=== PATIENT | male | born 1975 | race Caucasian/White ===

== ENCOUNTER 2021-06-17 10:51 | Emergency (ER) | payer OTHER, SELFPAY ==
--- NOTE | 2021-06-17 10:56 | ED.NAVMDI ---
HPI - Nausea/Vomiting/Diarrhea General Chief complaint: Nausea/Vomiting/Diarrhea Stated complaint: diahhrea nausea chills Time Seen by Provider: 06/17/21 10:56 Source: patient and RN notes reviewed History of Present Illness HPI Narrative: Patient is a 46-year-old male who presents the urgent care with requesting a work note. Patient states that on Thursday he ate [employer] around 2 PM and developed some nausea, diarrhea, chills and abdominal cramps. Patient states that symptoms have completely resolved however he needs a return to work note. Patient states that he is diabetic and hypertensive and stopped his medications sometime ago. Patient is currently denying of any chest pain or headache. No other acute complaints. No acute distress noted. Patient aware of the plan of care. Some parts of this dictation were generated by voice recognition software and may contain typographical and/or grammatical inaccuracies. Related Data Home Medications Medication Instructions Recorded Confirmed No Home Medications 06/17/21 06/17/21 Allergies Allergy/AdvReac Type Severity Reaction Status Date / Time No Known Allergies Allergy Verified 06/17/21 11:04 Review of Systems Review of Systems: CONSTITUTIONAL: Denies fever, chills, or sweats. EYES: Denies visual changes, redness, or discharge. ENT: Denies rhinorrhea, congestion, sore throat, or otalgia. CARDIOVASCULAR: Denies chest pain, palpitations, or edema. RESPIRATORY: Denies cough or dyspnea. GASTROINTESTINAL: Denies abdominal pain, nausea, vomiting, or diarrhea. GENITOURINARY: Denies dysuria or hematuria. SKIN: Denies rash or itching. MUSCULOSKELETAL: Denies back pain, joint pain, or myalgia. NEUROLOGIC: Denies headache, numbness, or weakness. All other systems reviewed are negative, except as documented in HPI. PMFSH Comments At the time of my signature, I reviewed and agree with the nursing past medical, surgical, social, and family history. There is no relevant family history pertinent to the patient complaint. Exam Narrative: GENERAL: This is a well-nourished, well-developed patient, in no apparent distress. HEAD: normocephalic, atraumatic. EYES: PERRL. Sclera clear/white. Vision is grossly intact. EARS: External ears normal NOSE: External nose normal with no obvious nasal discharge, nares without redness, no rhinorrhea. THROAT: Mucous membranes moist NECK: Neck supple CARDIOVASCULAR: Regular rate and rhythm without murmurs, gallops, or rubs. RESPIRATORY: Clear to auscultation. Breath sounds equal bilaterally. No wheezes, rales, or rhonchi. GASTROINTESTINAL: Abdomen soft, non-tender, nondistended. Bowel sounds are active. No hepato-splenomegaly, or palpable masses. No guarding. SKIN: warm, intact with no suspicious lesions or rash, good texture and turgor. NEURO: awake, alert, and oriented to person, place and time. There were no obvious focal neurologic abnormalities. EXTREMITIES: No clubbing, cyanosis, or edema. Course Course Level of Care: Express Care Visit Vital Signs Vital signs: Vital Signs Temperature 98.5 F 06/17/21 10:58 Pulse Rate 95 06/17/21 10:58 Respiratory Rate 16 06/17/21 10:58 Blood Pressure 165/121 H 06/17/21 10:58 Pulse Oximetry 98 06/17/21 10:58 Temperature 98.5 F 06/17/21 10:58 Pulse Rate 95 06/17/21 10:58 Respiratory Rate 16 06/17/21 10:58 Blood Pressure 165/121 H 06/17/21 10:58 Pulse Oximetry 98 06/17/21 10:58 Reviewed-patient is informed that they may have pre-hypertension or hypertension based on a blood pressure reading in the department. I recommend the patient call the primary care provider listed on their discharge instructions or a physician of their choice this week to arrange follow-up for further evaluation of possible pre-hypertension or hypertension. MDM - Nausea/Vomiting/Diarrhea MDM Narrative Medical decision making narrative: Advised the patient to follow-up with a primary care doctor f
[2021-06-17 10:58] VITALS: BP 165/121; PULSE 95; RESP 16; TEMP 36.9; O2SAT 98
== END 2021-06-17 11:20 | disposition home or self-care (01) ==
PROVIDERS: Emergency Provider Nurse Practitioner Family
DX: Z71.1 Person with feared health complaint in whom no diagnosis is made (principal); I10 Essential (primary) hypertension; E11.9 Type 2 diabetes mellitus without complications; Z91.14 Patient's other noncompliance with medication regimen
CPT/HCPCS: 99202; G0463

== ENCOUNTER 2022-09-08 12:20 | Emergency (ER) | payer BC, SELFPAY ==
[2022-09-08 12:36] VITALS: BP 159/89; PULSE 84; RESP 16; TEMP 36.8; O2SAT 96
--- NOTE | 2022-09-08 12:37 | ED.URI ---
HPI - URI/Sore Throat General Chief Complaint: Upper Respiratory Infection Stated Complaint: cough causing sob History of Present Illness HPI Narrative: patient here requesting work note missed work due to nasal congestion no cough no fever no shortness of breath and no chest pain Related Data Home Medications Medication Instructions Recorded Confirmed atorvastatin 80 mg tablet mg 09/08/22 empagliflozin 10 mg tablet mg 09/08/22 (Jardiance) furosemide 40 mg tablet mg 09/08/22 glimepiride 2 mg tablet mg 09/08/22 lisinopril 10 mg tablet mg 09/08/22 metformin 500 mg tablet,extended mg PO 09/08/22 release 24 hr metoprolol tartrate 25 mg tablet mg 09/08/22 nitroglycerin 0.4 mg sublingual mg 09/08/22 tablet pantoprazole 40 mg tablet,delayed mg PO 09/08/22 release ticagrelor 90 mg tablet (Brilinta) mg 09/08/22 Allergies Allergy/AdvReac Type Severity Reaction Status Date / Time No Known Allergies Allergy Verified 06/17/21 11:04 Review of Systems Review of Systems: CONSTITUTIONAL: Denies chills, or sweats. Reports fever and generalized body aches EYES: Denies visual changes, redness, or discharge. ENT: Denies otalgia. Reports nasal congestion runny nose and sore throat CARDIOVASCULAR: Denies chest pain, palpitations, or edema. RESPIRATORY: Denies dyspnea. Reports occasional cough GASTROINTESTINAL: Denies abdominal pain, nausea, vomiting, or diarrhea. GENITOURINARY: Denies dysuria or hematuria. SKIN: Denies rash or itching. MUSCULOSKELETAL: Denies back pain, joint pain, or myalgia. Reports generalized body aches NEUROLOGIC: Denies headache, numbness, or weakness. PSYCHIATRIC: Denies anxiety or depression. PMFSH Comments At time of signature, agree with nursing past medical, surgical, social and family history. There is no relevant family history pertinent to the presenting complaint Exam Narrative: The patient is a well-developed, well-nourished in no acute distress. SKIN: Skin is warm and dry without erythema, swelling or exudate. There is good turgor. No tenting. HEAD: Atraumatic. Normocephalic. No temporal or scalp tenderness. EYES: Moist and bright. Sclera and conjunctivae normal. No discharge. PERRLA. Extraocular motions intact. Gross visual acuity intact. EARS: Pinna is normal shape and contour. Clear external auditory canals. TM pearly linares with good cone of light, no erythema or suppuration. Bilateral cerumen noted no gross hearing deficit. NOSE: pink, moist mucosa with good air movement. Clear rhinorrhea without nasal flaring. Septum midline. Mouth: moist mucous membranes. THROAT; mild erythema noted to posterior oropharynx with moderate postnasal drainage. Without exudate or ulceration.. Uvula midline. Normal movement of soft palate. NECK: Supple and nontender with full range of motion without discomfort. No meningeal signs. LUNGS: Equal and bilateral breath sounds without wheezes, rales or rhonchi. CHEST: The chest wall is without retractions or use of accessory muscles. HEART: Has a regular rate and rhythm without murmur, gallops, click or rub. ABDOMEN: Soft, nontender with positive active bowel sounds. No rebound tenderness. EXTREMITIES: Without cyanosis, clubbing or edema. Equal 2+ distal pulses and 2 second capillary refill noted. NEUROLOGIC: alert, active, . The patient moves all extremities with normal muscle strength. Normal muscle tone is noted. Normal coordination is noted. NO focal neurological findings noted. Course Course Level of Care: Express Care Visit Discharge Plan Discharge Clinical Impression: Upper respiratory infection Patient Disposition: Home, Self-Care Condition: Stable Instructions: Upper Respiratory Infection (DC) Additional Instructions: congestion - flonase am and pm for chronic sinus congestion or prolonged symptoms of sinusitis (takes several days to work). one to three times a day of irrigation of sinus with saline spray, oc
== END 2022-09-08 12:43 | disposition home or self-care (01) ==
PROVIDERS: Emergency Provider Nurse Practitioner Family; PCP Internal Medicine
DX: J06.9 Acute upper respiratory infection, unspecified (principal); E78.00 Pure hypercholesterolemia, unspecified; I10 Essential (primary) hypertension; E11.9 Type 2 diabetes mellitus without complications; I25.2 Old myocardial infarction
CPT/HCPCS: 99211; G0463

== ENCOUNTER 2023-03-11 13:56 | Emergency (ER) | payer SELFPAY ==
[2023-03-11 14:07] VITALS: BP 160/94; PULSE 89; RESP 18; TEMP 37; O2SAT 97
--- NOTE | 2023-03-11 14:20 | ED.URI ---
HPI - URI/Sore Throat General Chief Complaint: Nausea/Vomiting/Diarrhea Stated Complaint: nausea/diarrhea Time Seen by Provider: 03/11/23 14:20 Source: patient and RN notes reviewed Mode of arrival: ambulatory Limitations: no limitations History of Present Illness HPI Narrative: 47 y/o male with hx HTN, DM, CAD presented for c/o nausea and vomiting yesterday, started with diarrhea today. Last emesis was yesterday morning. Denies abdominal pain, hematochezia, melena, or hematemesis. Declines testing today just wants work note because he missed today. No pcp, new job just starting with new insurance and has not been taking prescribed meds as directed in order to stretch them to last until he can afford refills. Related Data Home Medications Medication Instructions Recorded Confirmed atorvastatin 80 mg tablet 80 mg PO DAILY 09/08/22 03/11/23 empagliflozin 10 mg tablet 10 mg PO DAILY 09/08/22 03/11/23 (Jardiance) furosemide 40 mg tablet 40 mg PO DAILY 09/08/22 03/11/23 glimepiride 2 mg tablet 2 mg PO DAILY 09/08/22 03/11/23 lisinopril 10 mg tablet 10 mg PO DAILY 09/08/22 03/11/23 metformin 500 mg tablet,extended 500 mg PO DAILY 09/08/22 03/11/23 release 24 hr metoprolol tartrate 25 mg tablet 25 mg PO BID 09/08/22 03/11/23 nitroglycerin 0.4 mg sublingual See Rx Instructions .Route .COMPLEX 09/08/22 03/11/23 tablet pantoprazole 40 mg tablet,delayed 40 mg PO DAILY 09/08/22 03/11/23 release ticagrelor 90 mg tablet (Brilinta) 90 mg PO BID 09/08/22 03/11/23 Allergies Allergy/AdvReac Type Severity Reaction Status Date / Time No Known Allergies Allergy Verified 03/11/23 14:09 Review of Systems Review of Systems: CONSTITUTIONAL: Denies body aches, fever, chills ENT: Denies rhinorrhea, congestion CARDIOVASCULAR: Denies chest pain, palpitations, or edema. RESPIRATORY: Denies cough or dyspnea. GASTROINTESTINAL: Endorses abdominal pain, nausea, vomiting, diarrhea. Denies hematochezia, melena, hematemesis GENITOURINARY: Denies dysuria, hematuria, or CVA tenderness. SKIN: Denies rash, itching, or wounds. MUSCULOSKELETAL: Denies back pain, joint pain, or myalgia. NEUROLOGIC: Denies headache, numbness, tingling, or weakness. All systems reviewed & are unremarkable except as noted in HPI and below PMFSH Past Medical History Medical History (Updated 03/11/23 @ 14:57 by Melissa Beard APRN) CAD (coronary artery disease) Diabetes Social History Social History (Updated 03/11/23 @ 14:57 by Melissa Beard APRN) Smoking packs per day: 1 Smoking cigarettes per day: 20.0 Smoking status: Current every day smoker Tobacco type: cigarettes Comments At time of signature, I have reviewed and agree with nursing past medical, surgical, social and family history unless otherwise noted. Please see nursing chart for further information. There is no relevant family history pertinent to the presenting complaint Exam Narrative: GENERAL: Well-appearing, and in no acute distress. EYES: EOMI. Conjunctivae normal. ENT: Mucous membranes pink and moist. CHEST: No respiratory distress. Clear to auscultation, faint exp wheeze to RUL. HEART: Regular rate and rhythm. No murmur appreciated. Normal peripheral pulses. ABDOMEN: abd soft, nondistended, normal active bowel sounds. nontender abdomen. No guarding, rebound tenderness, asymmetry EXTREMITIES: Normal range of motion. No edema. SKIN: Warm, dry, no rash. Capillary refill normal. Normal skin turgor. NEURO: No focal deficits. Alert and oriented x3. PSYCH: Normal affect. Course Course Emergency Course: Patient is aware of diagnosis, understands and agrees to treatment plan. Anticipatory guidance given. Patient agrees to follow-up as directed and is aware of reasons to seek care at the emergency department. Portions of this record may have been created with voice recognition software Level of Care: Express Care Visit Vital Signs Vital signs: Vital
== END 2023-03-11 14:55 | disposition home or self-care (01) ==
PROVIDERS: Emergency Provider Nurse Practitioner Family; PCP Internal Medicine
DX: R11.2 Nausea with vomiting, unspecified (principal); R19.7 Diarrhea, unspecified; I25.10 Atherosclerotic heart disease of native coronary artery without angina pectoris; Z79.84 Long term (current) use of oral hypoglycemic drugs; E11.9 Type 2 diabetes mellitus without complications; I10 Essential (primary) hypertension; F17.210 Nicotine dependence, cigarettes, uncomplicated
CPT/HCPCS: 99211; G0463

== ENCOUNTER 2023-06-08 08:52 | Emergency (ER) | payer OTHER, SELFPAY ==
--- NOTE | ~2023-06-08 | XR_ITS ---
XR forearm RT 2V 06/08/2023 09:45 INDICATION: Right forearm pain PROCEDURE: 2 views right forearm COMPARISON: No prior studies for comparison. FINDINGS: Fracture, dislocation or subluxation is not identified. Moderate dorsal soft tissue swellin g. No foreign bodies are identified. IMPRESSION: 1: NO ACUTE BONE OR JOINT ABNORMALITY IDENTIFIED. Reviewed, dictated and finalized at location A.
[2023-06-08 09:02] VITALS: BP 180/103; PULSE 79; RESP 20; TEMP 36.8; O2SAT 97
--- NOTE | 2023-06-08 09:41 | ED.UPPEXIN ---
HPI - Extremity Injury (Upper) General Chief Complaint: Extremity Injury, Upper Stated Complaint: Right forearm pain/tongue burn Time Seen by Provider: 06/08/23 09:33 Source: patient and RN notes reviewed Mode of arrival: ambulatory Limitations: no limitations History of Present Illness HPI narrative: Patient presents today with right forearm pain after a fall yesterday. States he did initially have pain, but is having significant pain today that he currently rates 3/10. Denies numbness or tingling in the arm or hand. Denies taking any [id number] medication for pain prior to arrival. He is also complaining of tongue pain after eating some biscuits and gravy at [facility] a few days ago. States it felt that he had a chemical burn, not a burn due to temperature. Related Data Home Medications Medication Instructions Recorded Confirmed atorvastatin 80 mg tablet 80 mg PO DAILY 09/08/22 03/11/23 empagliflozin 10 mg tablet 10 mg PO DAILY 09/08/22 03/11/23 (Jardiance) furosemide 40 mg tablet 40 mg PO DAILY 09/08/22 03/11/23 glimepiride 2 mg tablet 2 mg PO DAILY 09/08/22 03/11/23 lisinopril 10 mg tablet 10 mg PO DAILY 09/08/22 03/11/23 metformin 500 mg tablet,extended 500 mg PO DAILY 09/08/22 03/11/23 release 24 hr metoprolol tartrate 25 mg tablet 25 mg PO BID 09/08/22 03/11/23 nitroglycerin 0.4 mg sublingual See Rx Instructions .Route .COMPLEX 09/08/22 03/11/23 tablet pantoprazole 40 mg tablet,delayed 40 mg PO DAILY 09/08/22 03/11/23 release ticagrelor 90 mg tablet (Brilinta) 90 mg PO BID 09/08/22 03/11/23 Allergies Allergy/AdvReac Type Severity Reaction Status Date / Time No Known Allergies Allergy Verified 03/11/23 14:09 Review of Systems Review of Systems: CONSTITUTIONAL: Denies body aches, fever, chills, or sweats. EYES: Denies visual changes, redness, or discharge. ENT: Denies rhinorrhea, congestion, sore throat, or otalgia.+ tongue pain CARDIOVASCULAR: Denies chest pain, palpitations, or edema. RESPIRATORY: Denies cough or dyspnea. GASTROINTESTINAL: Denies abdominal pain, nausea, vomiting, or diarrhea. GENITOURINARY: Denies dysuria or hematuria. SKIN: Denies rash, itching, or wounds. MUSCULOSKELETAL: + right forearm pain NEUROLOGIC: Denies headache, numbness, tingling, or weakness. PSYCH: Denies depression or anxiety. [facility] Past Medical History Medical History (Updated 06/08/23 @ 10:03 by Dona Livingston, [facility], ) CAD (coronary artery disease) Diabetes History of myocardial infarction Social History Social History Smoking packs per day: 1 Smoking cigarettes per day: 20.0 Smoking status: Current every day smoker Tobacco type: cigarettes Comments At time of signature, I have reviewed and agree with nursing past medical, surgical, social and family history unless otherwise noted. Please see nursing chart for further information. There is no relevant family history pertinent to the presenting complaint Exam Narrative: GENERAL: Well-appearing, well-nourished, and in no acute distress. HEAD: Normocephalic, atraumatic. EYES: EOMI. No redness or drainage. Conjunctivae normal. ENT: Mucous membranes pink and moist. Nares clear. No rhinorrhea. TMs normal bilaterally. Throat normal. Uvula midline. Patient has a few fissures of his tongue on the left anterior portion. Remainder of tongue appears normal. NECK: Normal AROM. Supple. EXTREMITIES: Right forearm: Mild tenderness to the mid ulna without deformity, ecchymosis. No tenderness to the radius. No tenderness to the elbow or wrist area. Distal sensation intact. Capillary refill normal. Radial pulse normal. Very mild pain elicited with range of motion of the wrist. SKIN: Warm, dry, no rash. Capillary refill normal. Normal skin turgor. NEURO: No focal deficits. Alert and oriented x3. Gait steady. PSYCH: Normal affect. No signs of depression or anxiety. Co
== END 2023-06-08 10:05 | disposition home or self-care (01) ==
PROVIDERS: Emergency Provider Nurse Practitioner; PCP Internal Medicine
DX: S50.11XA Contusion of right forearm, initial encounter (principal); W19.XXXA Unspecified fall, initial encounter; I25.10 Atherosclerotic heart disease of native coronary artery without angina pectoris; E11.9 Type 2 diabetes mellitus without complications; I25.2 Old myocardial infarction; F17.210 Nicotine dependence, cigarettes, uncomplicated
CPT/HCPCS: 73090; 99213; G0463

== ENCOUNTER 2023-06-10 15:49 | Emergency (ER) | payer OTHER, SELFPAY ==
--- NOTE | ~2023-06-10 | XR_ITS ---
EXAMINATION: XR hand RT min 3V DATE: 06/10/2023 16:18 INDICATION: Right hand injury. TECHNIQUE: 3 views of right hand were obtained. COMPARISON: None. FINDINGS: Bone alignment is normal. No fracture. There is mild osteoarthritis of first carpometacarpa l joint and first-third metacarpophalangeal joints. IMPRESSION: 1. Mild polyarticular osteoarthritis. Reviewed, dictated and finalized at location E.
[2023-06-10 15:59] VITALS: BP 135/82; PULSE 84; RESP 20; TEMP 37.7; O2SAT 96
--- NOTE | 2023-06-10 16:01 | ED.UPPEXIN ---
HPI - Extremity Injury (Upper) General Chief Complaint: Extremity Injury, Upper Stated Complaint: Right Hand Injury Time Seen by Provider: 06/10/23 16:20 Source: patient and RN notes reviewed Mode of arrival: ambulatory Limitations: no limitations History of Present Illness HPI narrative: 48-year-old male who is on blood thinners presents with concern for a lump on his right dorsal hand. Reports this happened after an injury at work when it was hit with a metal ball on a piece of equipment. He denies decreased strength, sensation, range of motion in the hand or digits. MD complaint: injury to: right and hand Related Data Home Medications Medication Instructions Recorded Confirmed atorvastatin 80 mg tablet 80 mg PO DAILY 09/08/22 06/10/23 furosemide 40 mg tablet 40 mg PO DAILY 09/08/22 06/10/23 glimepiride 2 mg tablet 2 mg PO DAILY 09/08/22 06/10/23 lisinopril 10 mg tablet 10 mg PO DAILY 09/08/22 06/10/23 metformin 500 mg tablet,extended 500 mg PO DAILY 09/08/22 06/10/23 release 24 hr metoprolol tartrate 25 mg tablet 25 mg PO BID 09/08/22 06/10/23 nitroglycerin 0.4 mg sublingual 0.4 mg sublingual DAILY PRN Chest 09/08/22 06/10/23 tablet Pain pantoprazole 40 mg tablet,delayed 40 mg PO DAILY 09/08/22 06/10/23 release ticagrelor 90 mg tablet (Brilinta) 90 mg PO BID 09/08/22 06/10/23 empagliflozin 25 mg tablet 25 mg PO DAILY 06/10/23 06/10/23 (Jardiance) Allergies Allergy/AdvReac Type Severity Reaction Status Date / Time No Known Allergies Allergy Verified 06/10/23 16:17 Review of Systems Review of Systems: CONSTITUTIONAL: Denies malaise, chills, sweats, or fever. SKIN: Denies rash or itching, open skin, laceration, abrasion, redness, warmth MUSCULOSKELETAL: Reports right hand pain and swelling NEUROLOGIC: Denies numbness, weakness All systems reviewed & are unremarkable except as noted in HPI and below PMFSH Past Medical History Medical History (Updated 06/10/23 @ 16:26 by Angella Schwarz NP) CAD (coronary artery disease) Diabetes History of myocardial infarction Social History Social History Smoking packs per day: 1 Smoking cigarettes per day: 20.0 Smoking status: Current every day smoker Tobacco type: cigarettes Comments At time of signature, agree with nursing past medical, surgical, social and family history. There is no relevant family history pertinent to the presenting complaint Exam Narrative: GENERAL: Well-appearing, well-nourished, and in no acute distress. HEAD: Normocephalic, atraumatic. EYES: PERRLA, conjunctivae clear NECK: Supple. CHEST: Speaks in full sentences. No respiratory distress. HEART: Regular rate and rhythm. Normal and equal peripheral pulses. EXTREMITIES: Right hand, digits have grossly normal strength and sensation, normal range of motion. Hematoma noted to the dorsal hand, no other No edema or ecchymosis.Normal sensation with sensitivity to light touch and pain. Tenderness at the hematoma site, no other tenderness noted. No open wounds, no skin tenting, no devitalized tissue or atrophy, no trophic changes, no obvious deformity, alignment normal, nearby joints and structures intact. Distal pulses palpable and equal bilaterally, skin warm, dry, pink. Capillary refill less than 3 seconds. SKIN: Warm, dry, no rash. NEURO: Alert and oriented x3. PSYCH: Normal mood and affect Course Course Emergency Course: Patient is aware of diagnosis, understands and agrees to treatment plan. Anticipatory guidance given. Patient agrees to follow-up as directed and is aware of reasons to seek care at the emergency department. Portions of this record may have been created with voice recognition software Level of Care: Express Care Visit Vital Signs Vital signs: Reviewed. MDM - Extremity Injury (Upper) Imaging Data My impression: Images reviewed, interpreted by radiologist, agree, see report. Radio
== END 2023-06-10 16:32 | disposition home or self-care (01) ==
PROVIDERS: Emergency Provider Nurse Practitioner; PCP Internal Medicine
DX: S60.221A Contusion of right hand, initial encounter (principal); W22.8XXA Striking against or struck by other objects, initial encounter; Y99.0 Civilian activity done for income or pay; I25.10 Atherosclerotic heart disease of native coronary artery without angina pectoris; E11.9 Type 2 diabetes mellitus without complications; Z79.84 Long term (current) use of oral hypoglycemic drugs; I25.2 Old myocardial infarction; F17.210 Nicotine dependence, cigarettes, uncomplicated
CPT/HCPCS: 73130; 99213; G0463

== ENCOUNTER 2023-07-05 12:21 | Emergency (ER) | payer OTHER, SELFPAY ==
--- NOTE | 2023-07-05 12:29 | ED.GENADULT ---
HPI - General Adult General Chief complaint: Extremity Injury, Lower Stated complaint: Release for broken toe Time Seen by Provider: 07/05/23 12:29 Source: patient, RN notes reviewed and old records reviewed Mode of arrival: ambulatory Limitations: no limitations History of Present Illness HPI narrative: 48-year-old male to Express Care for complaint right 5th toe pain. Patient states that he broke his toe 5 days ago while at home but cannot recall what he did to cause the injury. Patient has been treating at home with [id number] medications for pain. Patient states that he took the week off of work due to the injury and that he needs a note to return to work. Patient denies numbness, tingling and is able to ambulate without difficultly. patient in no acute distress. Related Data Home Medications Medication Instructions Recorded Confirmed atorvastatin 80 mg tablet 80 mg PO DAILY 09/08/22 06/10/23 furosemide 40 mg tablet 40 mg PO DAILY 09/08/22 06/10/23 glimepiride 2 mg tablet 2 mg PO DAILY 09/08/22 06/10/23 lisinopril 10 mg tablet 10 mg PO DAILY 09/08/22 06/10/23 metformin 500 mg tablet,extended 500 mg PO DAILY 09/08/22 06/10/23 release 24 hr metoprolol tartrate 25 mg tablet 25 mg PO BID 09/08/22 06/10/23 nitroglycerin 0.4 mg sublingual 0.4 mg sublingual DAILY PRN Chest 09/08/22 06/10/23 tablet Pain pantoprazole 40 mg tablet,delayed 40 mg PO DAILY 09/08/22 06/10/23 release ticagrelor 90 mg tablet (Brilinta) 90 mg PO BID 09/08/22 06/10/23 empagliflozin 25 mg tablet 25 mg PO DAILY 06/10/23 06/10/23 (Jardiance) Allergies Allergy/AdvReac Type Severity Reaction Status Date / Time No Known Allergies Allergy Verified 07/05/23 12:41 Review of Systems Review of Systems: All systems reviewed & are unremarkable except as noted in HPI and below Constitutional: Constitutional: Reports no additional constitutional complaints Eyes: Eyes: Reports no additional eye complaints ENT: Reports system reviewed and no additional complaints, except as documented Cardiovascular: Cardiovascular: Reports no additional cardiovascular complaints, Denies chest pain and Denies dyspnea Respiratory: Respiratory: Reports no additional respiratory complaints, Denies cough and Denies dyspnea Musculoskeletal: Musculoskeletal: Reports as per HPI, Denies abnormal gait, Reports arthralgias ( Fifth digit right foot), Denies numbness and Denies tingling Integumentary/Breasts: Skin/Breast: Reports as per HPI and Reports swelling ( 5th digit right foot) Psychiatric: Psychiatric: Reports no additional psychiatric complaints PMFSH Past Medical History Medical History CAD (coronary artery disease) Diabetes History of myocardial infarction Social History Social History Smoking packs per day: 1 Smoking cigarettes per day: 20.0 Smoking status: Current every day smoker Tobacco type: cigarettes Comments At the time of my signature, I reviewed and agree with the nursing past medical, surgical, social, and family history. There is no relevant family history pertinent to the patient complaint. Exam Const: General: cooperative, healthy appearing, comfortable, no acute distress, alert and well nourished Nutritional Appearance: well nourished Orientation/consciousness: patient oriented x3 Limitations: no limitations HENMT: Head: normal to inspection Ears: external ears normal Face/Nose/Sinus: Normal external nose present, Normal nares present, normal facial exam, No erythema and No edema Face and sinus: normal facial exam, no erythema and no edema Mouth: Yes Normal oral and palatal mucosa present Eyes: General: appearance normal, both eyes and all related structures Neck: Neck: normal visual inspection, full ROM and no meningeal signs Lymphatic: no lymphadenopathy noted and no lymphedema noted Chest: Ch
[2023-07-05 12:30] VITALS: BP 148/115; PULSE 84; RESP 20; TEMP 36.7; O2SAT 100
[2023-07-05 12:48] VITALS: BP 152/100
== END 2023-07-05 12:48 | disposition home or self-care (01) ==
PROVIDERS: Emergency Provider Nurse Practitioner Family; PCP Internal Medicine
DX: S99.921A Unspecified injury of right foot, initial encounter (principal); X58.XXXA Exposure to other specified factors, initial encounter; I25.10 Atherosclerotic heart disease of native coronary artery without angina pectoris; E11.9 Type 2 diabetes mellitus without complications; Z79.84 Long term (current) use of oral hypoglycemic drugs; I25.2 Old myocardial infarction; F17.210 Nicotine dependence, cigarettes, uncomplicated
CPT/HCPCS: 99212; G0463

== ENCOUNTER 2024-04-28 12:26 | Emergency (ER) | payer OTHER, SELFPAY ==
[2024-04-28 12:36] VITALS: BP 151/91; PULSE 83; RESP 20; TEMP 36.6; O2SAT 97
--- NOTE | 2024-04-28 12:47 | ED_ITS ---
HPI - Extremity Problem General Chief complaint: Extremity Problem,Nontraumatic Stated complaint: Left Hand/Finger Pain Time Seen by Provider: 04/28/24 12:47 Source: patient Mode of arrival: ambulatory Limitations: no limitations History of Present Illness HPI Narrative: 49-year-old male with a history of diabetes and CAD presented for complaint of left hand pain. Onset 3 days. States the pain is searing and excruciating when applying pressure. Pain is mostly to the middle and ring fingers. endorses difficulty pulling on socks or using the hand to lift himself up. Denies any pain to the left arm or radiating pain. Says pain is only in the hand. Denies numbness, tingling or weakness. Denies injury. Has not taken anything for pain. Related Data Home Medications ?Medication ?Instructions ?Recorded ?Confirmed ?Last Taken ?Type atorvastatin 80 mg tablet 80 mg PO DAILY 09/08/22 04/28/24 Unknown History furosemide 40 mg tablet 40 mg PO DAILY 09/08/22 06/10/23 Unknown History glimepiride 2 mg tablet 2 mg PO DAILY 09/08/22 04/28/24 Unknown History lisinopril 10 mg tablet 10 mg PO DAILY 09/08/22 04/28/24 Unknown History metformin 500 mg tablet,extended 500 mg PO DAILY 09/08/22 04/28/24 Unknown History release 24 hr metoprolol tartrate 25 mg tablet 25 mg PO BID 09/08/22 04/28/24 Unknown History nitroglycerin 0.4 mg sublingual 0.4 mg sublingual DAILY PRN Chest 09/08/22 06/10/23 Unknown History tablet Pain pantoprazole 40 mg tablet,delayed 40 mg PO DAILY 09/08/22 04/28/24 Unknown History release ticagrelor 90 mg tablet (Brilinta) 90 mg PO BID 09/08/22 04/28/24 Unknown History empagliflozin 25 mg tablet 25 mg PO DAILY 06/10/23 04/28/24 Unknown History (Jardiance) Allergies Allergy/AdvReac Type Severity Reaction Status Date / Time No Known Allergies Allergy Verified 04/28/24 12:41 Review of Systems Review of Systems: CONSTITUTIONAL: Denies body aches, fever, chills EYES: Denies visual changes ENT: Denies rhinorrhea, congestion CARDIOVASCULAR: Denies chest pain, palpitations, or edema. RESPIRATORY: Denies cough or dyspnea. GASTROINTESTINAL: Denies abdominal pain, nausea, vomiting, or diarrhea. SKIN: Denies rash, itching, or wounds. MUSCULOSKELETAL: Reports left hand pain NEUROLOGIC: Denies headache, numbness, tingling, or weakness. PSYCH: Denies depression or anxiety. All systems reviewed & are unremarkable except as noted in HPI and below PMFSH Past Medical History Medical History CAD (coronary artery disease) Diabetes History of myocardial infarction Social History Social History Smoking packs per day: 1 Smoking cigarettes per day: 20.0 Smoking status: Current every day smoker Tobacco type: cigarettes Comments At time of signature, I have reviewed and agree with nursing past medical, surgical, social and family history unless otherwise noted. Please see nursing chart for further information. There is no relevant family history pertinent to the presenting complaint Exam Narrative: GENERAL: Well-appearing CHEST: Speaks in full sentences. No respiratory distress. HEART: Regular rate and rhythm. Normal and equal peripheral pulses. EXTREMITIES: left hand has normal strength and sensation, slightly decreased range of motion with making a fist due to pain with movement. Reports pain to the 3rd and 4th digits with palpation over the palm. Mild swelling to digits. No erythema, or temperature changes. no ecchymosis, No point tenderness. No open wounds, or obvious deformity; alignment normal, pulse palpable and equal bilaterally, skin warm, dry, pink. Capillary refill less than 3 seconds. SKIN: Warm, dry, no rash. NEURO: Alert and oriented x3. PSYCH: Normal mood and affect Course Course Emergency Course: Patient is aware of diagnosis, understands and agrees to treatment plan. Anticipatory guidance given. Patient agrees to follow-up as directed and is aware of reasons to seek care at the emergency department. Portions of this record may have been created with voice recognition software Level of Care: Express Care Visit Vital Signs Vital signs: Vital Signs Temperature 97.8 F 04/28/24 12:36 Pulse Rate 83 04/28/24 12:36 Respiratory Rate 20 04/28/24 12:36 Blood Pressure 151/91 H 04/28/24 12:36 Pulse Oximetry 97 04/28/24 12:36 Oxygen Delivery Room Air 04/28/24 12:36 Temperature 97.8 F 04/28/24 12:36 Pulse Rate 83 04/28/24 12:36 Respiratory Rate 20 04/28/24 12:36 Blood Pressure 151/91 H 04/28/24 12:36 Pulse Oximetry 97 04/28/24 12:36 Oxygen Delivery Room Air 04/28/24 12:36 Reviewed MDM - Extremity (Nontraumatic) MDM Narrative Medical decision making narrative: Discussed physical exam findings, Rx steroid as pt is on blood thinner. TANVIR applied. No indication for imaging. Advised supportive measures and signs/symptoms to go to the ER. Pt is appropriate for outpt treatment and f/u. Differential Diagnosis Differential diagnosis: Likely gout, cellulitis and other (arthritis, fracture, sprain, strain) Discharge Plan Discharge Clinical Impression: Hand pain, left Patient Disposition: Home, Self-Care Condition: Stable Instructions: Hand Sprain (ED) Additional Instructions: Rest and elevate the left hand, activity as tolerated. Limit lifting, pushing, or pulling until symptoms are resolved. Apply ice 15-20 minute intervals several times a day Keep it wrapped with TANVIR or use a soft ankle splint Tylenol 1000mg every 8 hours as needed The steroid may raise blood sugar levels, monitor readings closely Follow up with your primary care provider as needed in 3 days. go to the ER for worsening symptoms or concerns Patient Language: [place] Prescriptions: New prednisone 20 mg tablet 40 mg PO DAILY 4 Days Qty: 8 0RF No Action furosemide 40 mg tablet 40 mg PO DAILY atorvastatin 80 mg tablet 80 mg PO DAILY glimepiride 2 mg tablet 2 mg PO DAILY pantoprazole 40 mg tablet,delayed release (DR/EC) 40 mg PO DAILY lisinopril 10 mg tablet 10 mg PO DAILY nitroglycerin 0.4 mg tablet, sublingual 0.4 mg sublingual DAILY PRN (Reason: Chest Pain) metformin 500 mg tablet extended release 24 hr 500 mg PO DAILY metoprolol tartrate 25 mg tablet 25 mg PO BID Brilinta 90 mg tablet 90 mg PO BID Jardiance 25 mg tablet 25 mg PO DAILY Follow-up/Referrals: UNKNOWN,DOCTOR [Primary Care Provider] - Stand Alone Forms: Work/School Release IP Time of Disposition: 13:02
--- OUTSIDE RECORDS SUMMARY | 2024-04-28 13:38 | XMS_ITS | Clinical Summary ---
Author Organization [facility] Address [address] [place] [address] Phone Care Team Providers Care Learning Solutions Specialist Name Role Phone Frankie Millan MD Primary Care Provider [phone] Glenn Sharif MD Unavailable Rolando Johnson MD Unavailable Clarisa Wong MD Unavailable Allergies No known active allergies Medications Blood Glucose Monitoring Suppl Device Diagnosis: Diabetes type 2 Blood testing frequency: 3 times a day 1 Each 01/22/20 22 Active Glucose Blood Strip Diagnosis: Diabetes type 2 Blood testing frequency: 3 times a day 100 Strip 1 01/22/20 22 Active Blood Glucose Monitoring Suppl (OneTouch Verio Reflect) w/Device Kit USE TO TEST THREE TIMES DAILY 01/22/20 22 Active glimepiride (AMARYL) 2 MG Tablet TAKE 1 TABLET BY MOUTH EVERY MORNING 90 Tablet 1 05/06/19 24 Active pantoprazole (PROTONIX) 40 MG Tablet Delayed Response TAKE 1 TABLET BY MOUTH DAILY 90 Tablet 1 07/20/19 24 Active Jardiance 25 MG Tablet TAKE 1 TABLET BY MOUTH DAILY 90 Tablet 1 01/12/20 24 Active triamcinolone (KENALOG) 0.1 % Cream Application Site: apply daily to hands (Description and Location) 80 g 03/01/19 25 Active Lancets Misc Use test blood sugar up to 3 times daily. 100 Lancet . 1 03/01/19 25 Active Glucose Blood Strip Diagnosis: Diabetes type 2 Blood testing frequency: 2-3 times a day 100 Strip 9 03/01/19 25 Active lisinopril (PRINIVIL, ZESTRIL) 20 MG Tablet Take 1 Tablet by mouth daily. 30 Tablet 5 03/25/19 25 Active metoprolol Succinate (TOPROL-XL) 50 MG TABLET SR 24 HR Take 1 Tablet by mouth daily. 90 Tablet 3 03/25/19 25 Active clopidogrel (PLAVIX) 75 MG Tablet Take 1 Tablet by mouth daily. 90 Tablet 3 03/25/19 25 Active rosuvastatin (CRESTOR) 40 MG Tablet Take 1 Tablet by mouth daily. 90 Tablet 3 03/25/19 25 Active fenofibrate (LOFIBRA) 54 MG Tablet Take 1 Tablet by mouth daily. 90 Tablet 3 03/25/19 25 Active metFORMIN (GLUCOPHAGE-XR ) 500 MG TABLET SR 24 HR TAKE 1 TABLET BY MOUTH DAILY 90 Tablet 04/17/19 25 Active metFORMIN (GLUCOPHAGE-XR ) 500 MG TABLET SR 24 HR Take 1 Tablet by mouth daily. This RX is for Metformin SR. 90 Tablet 08/17/19 24 025 Discontinued aspirin 81 MG Chewable Tablet Take 1 Tablet by mouth daily for 30 days. 03/25/19 25 025 Active Problems Problem Noted Date Diagnosed Date Coronary artery disease invo lving ewiiaapaayp coronary artery without angina pectoris 03/25/2024 S/P drug eluting coronary stent placement 2024 Hypertriglyceridemia 03/25/2024 Dyslipidemia 03/25/2024 SELMA (obstructive sleep apnea) 12/15/2022 Morbid obesity 01/18/2022 Tobacco dependence syndrome 01/16/2022 HTN (hypertension) 01/16/2022 Type 2 diabetes mellitus, [facility] long-term current use of insulin 01/16/2022 Resolved Problems Problem Noted Date Diagnosed Date Resolved Date NSTEMI (non-ST elevated myoc ardial infarction) 01/16/2022 01/21/2022 Encounters Date Type Department Care Team Description 04/16/2024 Refill [facility] Medical [facility] - Family Medicine - [place] [address] [place] [address] Frankie Millan MD Medication Refill 03/25/2024 11:00 AM DIRECTOR OF RESTAURANT OPERATIONS Office Visit [facility] Medical [facility] - Cardiology [facility] [address] [place] [address] Clarisa Wong MD Primary hypertension (Primary Dx); Tobacco dependence syndrome; Morbid obesity (HCC); SELMA (obstructive sleep apnea); Coronary artery disease involving ewiiaapaayp coronary artery of ewiiaapaayp heart without angina pectoris; S/P drug eluting coronary stent placement; Dyslipidemia; Hypertriglyceridemia Discharge Disposition: Discharged to home or Selfcare 03/25/2024 Travel 03/01/2024 9:55 AM DIRECTOR OF RESTAURANT OPERATIONS - 03/01/2024 11:59 PM DIRECTOR OF RESTAURANT OPERATIONS Hospital Encounter [facility] Diagnostic Radiology [address] [place] [address] Frankie Millan MD Discharge Disposition: Discharged to home or Selfcare 03/01/2024 9:15 AM DIRECTOR OF RESTAURANT OPERATIONS Office Visit [facility] [place] [address] [place] [address] Frankie Mlilan MD Type 2 diabetes mellitus without complication, without long-term current use of insulin (HCC) (Primary Dx); Obstructive sleep apnea syndrome; Coronary artery disease involving ewiiaapaayp coronary artery of ewiiaapaayp heart without angina pectoris; Degeneration of intervertebral disc of lumbar region with discogenic back pain; Primary hypertension; Pure hypercholesterolemia; Chronic right shoulder pain; Screening for colon cancer Discharge Disposition: Discharged to home or Selfcare 03/01/2024 Results Follow-Up [facility] [place] [address] [place] [address] Frankie Millan MD 03/01/2024 Travel from Last 3 Months Family History Medical History Relation Name Comments No Known Problems Brother 1 No Known Problems Brother 2 Cancer Father Lung Cancer Father No Known Problems Maternal Grandfather Arthritis Maternal Grandmother Cancer Mother Diabetes Mother Lung Cancer Mother No Known Problems Paternal Grandfather No Known Problems Paternal Grandmother No Known Problems Son 1 No Known Problems Son 2 Relation Name Status Comments Brother 1 Alive Brother 2 Alive Father Maternal Grandfather Maternal Grandmother Mother Paternal Grandfather Paternal Grandmother Son 1 Alive Son 2 Alive Social History Tobacco Use Types Packs/Day Years Used Date Smoking Tobacco: Every Day Cigarettes 1.5 43.2 Started: 1981 Smokeless Tobacco: Never Tobacco Cessation:Ready to Q uit: No; Counseling Given: No Alcohol Use Standard Drinks/Week Comments Yes 0 (1 standard drink = 0.6 oz pur e alcohol) occasionally [facility] Utilities Answer Date Recorded In the past 12 months has th e electric, gas, oil, or water company threatened to shut off services in your home? Yes 03/01/2024 Social Connection and Isolation Panel [NHANES] A nswer Date Recorded In a typical week, how many times do you talk on the phone with family, friends, or neighbors? Twice a week 03/01/2024 How often do you get together with friends or re latives? Once a week 03/01/2024 How often do you attend hinduism or voodoo serv ices? Never 03/01/2024 Do you belong to any clubs o r organizations such as hinduism groups, unions, fraternal or athletic groups, or school groups? No 03/01/2024 How often do you attend meet ings of the clubs or organizations you belong to? Never 03/01/2024 Are you , , di vorced, , never , or living with a partner? 03/01/2024 AUDIT-C Answer Date Recorded Q1: How often do you have a drink containing alcohol? Never 03/01/2024 Q2: How many drinks containi ng alcohol do you have on a typical day when you are drinking? Patient does not drink Q3: How often do you have si x or more drinks on one occasion? Never 03/01/2024 Overall Financial Resource Strain (CARDIA) Answe r Date Recorded How hard is it for you to pa y for the very basics like food, housing, medical care, and heating? Not hard at all 03/01/2024 PHQ-2 Answer Date Recorded Total Score - Questions 1-9 0 04/2023 [facility] - Occupational Stress Questionnaire Answer Date Recorded Do you feel stress - tense, restless, nervous, or anxious, or unable to sleep at night because your mind is troubled all the time - these days? Not at all 03/01/2024 Exercise Vital Sign Answer Date Recorde d On average, how many days pe r week do you engage in moderate to strenuous exercise (like a brisk walk)? 0 days 03/01/2024 On average, how many minutes do you engage in exercise at this level? 0 min 03/01/2024 Hunger Vital Sign Answer Date Recorded Within the past 12 months, y ou worried that your food would run out before you got the money to buy more. Never true 03/01/19 25 Within the past 12 months, t he food you bought just didn't last and you didn't have money to get more. Never true 03/01/2024 PRAPARE - Transportation Answer Date Re corded In the past 12 months, has l ack of transportation kept you from medical appointments or from getting medications? No 08/2024 In the past 12 months, has l ack of transportation kept you from meetings, work, or from getting things needed for daily living? No 03/01/2024 Housing Stability Vital Sign Answer Davie e Recorded In the last 12 months, was t here a time when you were not able to pay the mortgage or rent on time? Yes 03/01/2024 In the past 12 months, how m any times have you moved where you were living? 0 03/01/2024 At any time in the past 12 m [place], were you homeless or living in a chcf (including now)? No 03/01/2024 Education Answer Date Recorded What is the highest level of school you have completed or the highest degree you have received? Some college, no degree 04/04/2022 Sexually Active Control Partners Comments Yes Female Sex and Gender Information Value Date Recorded Sex Assigned at Not on file Legal Sex Male 11:26 PM CDT Gender Identity Not on file Sexual Orientation Not on file Last Filed Vital Signs Vital Sign Reading Time Taken Comments Blood Pressure 124/86 03/25/2024 11:15 AM DIRECTOR OF [employer]ANT [employer]PERATIONS Pulse 71 03/25/2024 11:15 AM DIRECTOR OF [employer]ANT OPERATIONS Temperature 36.4 C (97.5 F) 03/25/2024 11:15 AM DIRECTOR OF RESTAURANT OPERATIONS Respiratory Rate 16 03/25/2024 11:15 AM DIRECTOR OF RESTAURANT OPERATIONS Oxygen Saturation 96% 03/25/2024 11:15 AM DIRECTOR OF RESTAURANT OPERATIONS Inhaled Oxygen Concentration - - Weight 114.8 kg (253 lb) 03/25/2024 11:15 AM DIRECTOR OF RESTAURANT OPERATIONS Height 180.3 cm (5' 11 ) 03/25/2024 11:15 AM DIRECTOR OF RESTAURANT OPERATIONS Body Mass Index 35.29 03/25/2024 11:15 AM DIRECTOR OF RESTAURANT OPERATIONS Plan of Treatment Upcoming Encounters Date Type Department Care Team (Late st Contact Info) Description 06/20/2024 10:30 AM CDT Office Visit [facility] Medical [facility] - Cardiology - [place] [address] [place] [phone] Tasneem Justice APRN, [employer] [address] [place] [phone] 08/30/2024 10:30 AM CDT Office Visit [facility] Family Medicine [facility] [address] [place] [address] Frankie Millan MD [address] [address] 09/23/2024 11:30 AM CDT Office Visit [facility] Cardiology - [place] [address] [place] [phone] Clarisa Wong MD [address] [address] Health Maintenance Due Date Last Done Comments Diabetes: Eye Exam 1975 Hepatitis C Virus (HCV) Screening 1975 TdaP Immunization 1975 Hepatitis B Immunization (1 of 3 - 19+ 3-dose series) 1994 Pneumococcal Immunization Combined (1 of 2 - PCV) 1994 Colonoscopy 2020 Colorectal Cancer Screening 2020 SARS-COV-2 Immunization ( season) 2023 Diabetes: Foot Exam 12/05/2023 12/04/2022 Influenza Immunization (#1) 2024 Postponed from 10/25/2023 (Patient Temporarily Declines) Diabetes: Hemoglobin A1c 08/31/2024 025, 08/26/2023, 12/04/2022, Additional history exists Diabetes: Nephropathy Screening 03/03/2025 03/03/2024, 03/03/2024, 08/26/2023, Additional history exists Respiratory Syncytial Virus (RSV) Immunization (Adult) (1 - 1-dose 75+ series) 2050 Meningococcal Immunization (ACWY) Aged Out No longer eligible b ased on patient's age to complete this topic Rotavirus Immunization Aged Out No lo nger eligible based on patient's age to complete this topic Medical Devices Implanted Type Area Medical Art Therapist Device Identifier Shelf Expiration Date Model / Serial / Lot System Coronary Stent Xience Skypoint Everolimus Eluting 3.50 Mm X 28 Mm / Rapid-Exchange - [id number] Implanted:Qty: 1 on 01/20/2022 by Bro Sebastian MD at [facility] IMPLANT N/A: Coronary [employer] 07/12/2022 [id number] Procedures Procedure Name Priority Date/Time Associated Diagnosis Comments VITAMIN B12 Routine 03/03/2024 7:38 AM DIRECTOR OF RESTAURANT OPERATIONS Type 2 diabetes mellitus without complication, without long-term current use of insulin (HCC) Obstructive sleep apnea syndrome UR MICROALBUMIN/CREATIN INE RATIO RANDOM Today 03/03/2024 7:38 AM DIRECTOR OF [employer]ANT OPERATIONS Type 2 diabetes mellitus without complication, without long-term current use of insulin (HCC) HEMOGLOBIN A1C W/ ESTIMATED GLUCOSE Today 03/03/2024 7:38 AM DIRECTOR OF RESTAURANT OPERATIONS Type 2 diabetes mellitus without complication, without long-term current use of insulin (HCC) Obstructive sleep apnea syndrome Coronary artery disease involving ewiiaapaayp coronary artery of ewiiaapaayp heart without angina pectoris LIPID PANEL Today 03/03/2024 7:38 AM DIRECTOR OF [employer]AURANT OPERATIONS Type 2 diabetes mellitus without complication, without long-term current use of insulin (HCC) Obstructive sleep apnea syndrome Coronary artery disease involving ewiiaapaayp coronary artery of ewiiaapaayp heart without angina pectoris CMP (COMPREHENSIVE METABOLIC PANEL) Today 03/03/2024 7:38 AM DIRECTOR OF RESTAURANT OPERATIONS Type 2 diabetes mellitus without complication, without long-term current use of insulin (HCC) Obstructive sleep apnea syndrome Coronary artery disease involving ewiiaapaayp coronary artery of ewiiaapaayp heart without angina pectoris XR SHOULDER COMPLETE RIGHT Routine 03/01/2024 10:05 AM DIRECTOR OF RESTAURANT OPERATIONS Chronic right shoulder pain from Last 3 Months Results * (ABNORMAL) HEMOGLOBIN A1C W/ ESTIMATED GLUCOSE (03/03/2024 7:38 AM DIRECTOR OF RESTAURANT OPERATIONS) HGB-A1C 7.4(H) 4.0 - 6.0 % 03/03/2024 10:19 AM DIRECTOR OF RESTAURANT OPERATIONS [facility] Est Average Glucose 165.7 mg/dL 03/03/2024 10:19 AM DIRECTOR OF RESTAURANT OPERATIONS [facility] Blood Venipuncture / Unknown 03/03/2024 7:38 AM DIRECTOR OF RESTAURANT OPERATIONS 03/03/2024 8:59 AM DIRECTOR OF RESTAURANT OPERATIONS Narrative [facility] - 03/03/2024 10:19 AM DIRECTOR OF RESTAURANT OPERATIONS HEMOGLOBIN A1C: DIABETIC PATIENTS: WELL-CONTROLLED: 6.2 - 7.0 INTERMEDIATE WELL-CONTROLLED: 7.0 - 9.0 POORLY-CONTROLLED: >9.0 Frankie Millan MD CHEMISTRY ORDERABLES Final Re sult Performing Organization Address City/[facility] [address]/ZIP Co de Phone Number [facility] [address] [place] [address] * VITAMIN B12 (03/03/2024 7:38 AM DIRECTOR OF RESTAURANT OPERATIONS) VITAMIN B12 382 213 - 816 pg/mL 03/03/2024 12:42 PM DIRECTOR OF RESTAURANT OPERATIONS [facility] Blood Venipuncture / Unknown 03/03/2024 7:38 AM DIRECTOR OF RESTAURANT OPERATIONS 03/03/2024 8:59 AM DIRECTOR OF RESTAURANT OPERATIONS Frankie Millan MD CHEMISTRY ORDERABLES Final Re sult [facility] [address] [place] [address] * UR MICROALBUMIN/CREATININE RATIO RANDOM (03/03/2024 7:38 AM DIRECTOR OF RESTAURANT OPERATIONS) Pathologist [facility] RAN UR MICROALBUMIN 1.21 mg/dL 03/03/2024 9:21 AM DIRECTOR OF RESTAURANT OPERATIONS [facility] Comment:No reference range h as been established. Consider Clinical Correlation. CREATININE URINE 71.4 mg/dL 03/03/19 9:21 AM [facility] Comment:No reference range h as been established. Consider Clinical Correlation. ALB/CREAT RATIO 17 0 - 30 mg/g CRE 03/03/2024 9:21 AM DIRECTOR OF RESTAURANT OPERATIONS [facility] Urine Non-Phlebotomy Collection / Unknown 03/03/2024 7:38 AM DIRECTOR OF RESTAURANT OPERATIONS 03/03/2024 8:58 AM [facility] Frankie Millan MD URINE ORDERABLES Final Result [facility] [address] [place] [address] * (ABNORMAL) LIPID PANEL (03/03/2024 7:38 AM DIRECTOR OF RESTAURANT OPERATIONS) [facility] CHOLESTEROL 258(H) <200 mg/dL 03/03/2024 9:32 AM [facility] TRIGLYCERIDES 441(H) <150 mg/dL 03/03/2024 9:32 AM [facility] HDL CHOLESTEROL 34(L) >40 mg/dL 9:32 AM DIRECTOR OF RESTAURANT OPERATIONS [facility] LDL 03/03/2024 9:32 AM [facility] Comment:Unable to calculate LDL when Triglycerides are greater than 400. Direct measurement of LDL is available upon request as a separate test. VLDL 03/03/2024 9:32 AM [facility] Comment:Cannot be calculated due to Hypertriglyceridemia. CHOL/HDL RATIO 7.6(H) 0.0 - 4.4 03/03/2024 9:32 AM [facility] NON-HDL CHOLESTEROL 224(H) <130 mg/dL 03/03/2024 9:32 AM [facility] IS THE PATIENT REQUIRED TO BE FASTING? No 03/03/2024 9:32 AM [facility] Blood Venipuncture / Unknown 03/03/2024 7:38 AM DIRECTOR OF [employer]AURANT OPERATIONS 03/03/2024 8:59 AM DIRECTOR OF RESTAURANT OPERATIONS us Frankie Millan MD CHEMISTRY ORDERABLES Final Re sult [facility] [address] [place] [address] * (ABNORMAL) CMP (COMPREHENSIVE METABOLIC PANEL) (03/03/2024 7:38 AM DIRECTOR OF RESTAURANT OPERATIONS) SODIUM 140 136 - 145 mmol/L 03/03/2024 9:32 AM [facility] POTASSIUM 4.6 3.5 - 5.1 mmol/L 03/03/2024 9:32 AM [facility] Comment: Specimen is hemolyzed. In vitro hemolysis could affect results. Clinical correlation advised. CHLORIDE 106 98 - 107 mmol/L 03/03/2024 9:32 AM [facility] CO2, VENOUS 25 22 - 30 mmol/L 03/03/2024 9:32 AM [facility] ANION GAP 13.6 <18.0 mmol/L 03/03/2024 9:32 AM [facility] GLUCOSE 165(H) 70 - 99 mg/dL 03/03/2024 9:32 AM [facility] BUN 11 9 - 21 mg/dL 03/03/2024 9:32 AM [facility] CREATININE, BLOOD 0.85 0.70 - 1.30 mg/dL 03/03/2024 9:32 AM [facility] BUN/CREATININE RATIO 13 12 - 20 ratio 03/03/2024 9:32 AM [facility] TOTAL PROTEIN 7.6 6.3 - 8.2 g/dL 03/03/2024 9:32 AM [facility] Comment: Specimen is hemolyzed. In vitro hemolysis could affect results. Clinical correlation advised. ALBUMIN 4.3 3.5 - 5.0 g/dL 03/03/2024 9:32 AM [facility] A/G RATIO 1.3 1.0 - 2.2 03/03/2024 9:32 AM [employer]OR [employer]PERATIONS [facility] CALCIUM 9.4 8.7 - 10.5 mg/dL 03/03/2024 9:32 AM [facility] T BILI 0.4 0.2 - 1.2 mg/dL 03/03/2024 9:32 AM DIRECTOR OF [employer]PERATIONS [facility] SGOT (AST) 25 5 - 34 U/L 03/03/2024 9:32 AM [facility] Comment: Specimen is hemolyzed. In vitro hemolysis could affect results. Clinical correlation advised. SGPT (ALT) 18 0 - 55 U/L 03/03/2024 9:32 AM [facility] ALKALINE PHOSPHATASE 78 40 - 150 U/L 03/03/2024 9:32 AM [facility] IS THE PATIENT REQUIRED TO BE FASTING? No 03/03/2024 9:32 AM DIRECTOR OF RESTAURANT OPERATIONS [facility] GFR, ESTIMATED >60 >=60 03/03/2024 9:32 AM [facility] Comment: Creatinine Clearance is the preferred criteria for selecting drug dose adjustments in renally impaired patients. The GFR is provided as additional pertinent clinical information. GFR is reported in mL/min/1.73 sq m. Calculation based on the Chronic Kidney Disease Epidemiology Collaboration (CKD- EPI) equation refit without adjustment for race. GFR, EST. >60 >=60 025 9:32 AM DIRECTOR OF RESTAURANT OPERATIONS [facility] GFR, EST. NONAFRICAN >60 >=60 03/03/2024 9:32 AM [facility] Blood Venipuncture / Unknown 03/03/2024 7:38 AM DIRECTOR OF [employer] OPERATIONS 03/03/2024 8:59 AM DIRECTOR OF RESTAURANT OPERATIONS us Frankie Millan MD CHEMISTRY ORDERABLES Final Re sult [facility] [address] [place] [address] * XR SHOULDER COMPLETE RIGHT (03/01/2024 10:05 AM DIRECTOR OF RESTAURANT OPERATIONS) Anatomical Region Laterality Modality UPPER EXTREMITY, shoulder Right Digita l Radiography 03/01/2024 10:1 9 AM DIRECTOR OF RESTAURANT OPERATIONS Impressions 03/01/2024 10:22 AM DIRECTOR OF RESTAURANT OPERATIONS IMPRESSION: No acute fracture or dislocation involving the right shoulder Narrative 03/01/2024 10:22 AM DIRECTOR OF RESTAURANT [employer]PERATIONS EXAM DESCRIPTION: XR SHOULDER COMPLETE RIGHT REASON FOR STUDY: pt c/o of RT upper arm pain that goes into RT elbow x 2-3 months. no injury or hx of surgery. TECHNIQUE: 4 view(s) of the right shoulder COMPARISON: None FINDINGS: There is no acute fracture or dislocation. No aggressive appearing osseous lesion. Joint spaces appear relatively well preserved. The soft tissue structures are unremarkable. Included portion of the right lung is grossly clear. The visualized ribs are intact. THIS IS AN ELECTRONICALLY VERIFIED FINAL REPORT 03/01/2024 10:19 AM - Electronically signed by Anai Conti M.D. TW: TW Report ID: [id number] Reading Location: [id number] Procedure Note Anai Conti MD - 03/01/2024 EXAM DESCRIPTION: XR SHOULDER COMPLETE RIGHT REASON FOR STUDY: pt c/o of RT upper arm pain that goes into RT elbow x 2-3 months. no injury or hx of surgery. TECHNIQUE: 4 view(s) of the right shoulder COMPARISON: None FINDINGS: There is no acute fracture or dislocation. No aggressive appearing osseous lesion. Joint spaces appear relatively well preserved. The soft tissue structures are unremarkable. Included portion of the right lung is grossly clear. The visualized ribs are intact. THIS IS AN ELECTRONICALLY VERIFIED FINAL REPORT 03/01/2024 10:19 AM - Electronically signed by Anai Conti M.D. TW: TW Report ID: [id number] Reading Location: [id number] IMPRESSION: No acute fracture or dislocation involving the right shoulder Frankie Millan MD IMG DIAGNOSTIC ORDERABLES Fin al Result from Last 3 Months Insurance MEDICAID [employer] Advance Directives * Full Code (Latest Code Status on File) Date Activated Date Inactivated Comments 01/17/2022 12:22 AM 01/21/2022 5:12 PM CPR-Full Treatment: FULL ARREST: Attempt Resuscitation/CPR wit intubation and mechanical ventilation. PRE-ARREST: Use entire range of life support measures to stabilize the patient. Care Teams Learning Solutions Specialist Relationship Specialty Start Date End Date Frankie Millan MD [address] [facility] [address] [place] [address] PCP - General Family Medicine 06/03/22 Glenn Sharif MD [address]2 [facility] [address] [place] [address] Consulting Physician Colon and Rectal Surgery 06/12/22 Rolando Jhonson MD [address] [place] [phone] Consulting Physician Pulmonary Disease 12/15/22 Clarisa Wong MD [address] [facility] [place] [id number] Consulting Physician Cardiology 03/25/24
--- OUTSIDE RECORDS SUMMARY | 2024-04-28 13:38 | XMS_ITS | Continuity of Care Document ---
Author Name [facility] Organization [facility] Care Team Providers Care Underground Mine Superintendent Name Role Phone [facility] Unavailable Unavailable Encounters Combined list of: 1) Encounters from [facility] facilities going backup to the last 18 months, not all VA inpatient encounters are included; 2) Encounters from the Department of [facility] facilities going backup to 280 months. Location Location Details Encounter Type Encounter Number Reason For Visit Attending Provider ADM Date DC Date Status Disposition Source [facility] Outpatient Encounter [id number] 05/27 [facility]
--- OUTSIDE RECORDS SUMMARY | 2024-04-28 13:38 | XMS_ITS | Encounter Summary ---
Author Organization [facility] Address [address] [place] [address] Phone Care Team Providers Care Rn Critical Care Name Role Phone Frankie Millan MD Primary Care Provider [phone] Glenn Sharif MD Unavailable Bro Sebastian MD Unavailable Rolando Zambrano MD Unavailable Emelia Ojeda APRN, FINANCIAL INSTITUTION BRANCH MANAGER Unavailable [phone] Ernestina Ovalle APPEALS MANAGER Unavailable Unavailable Brandee Haque HEALTH THERAPIST Unavailable Unavailab Clarisa Lawrence MD Unavailable Reason for Visit * Reason Comments Medication Refill Encounter Details Date Type Department Care Team (Late st Contact Info) Description 07/31/2022 [facility]ill [facility] Med Surg [address] [place] [phone] Frankie Millan MD #[address] [address] Medication Refill Social History Tobacco Use Types Packs/Day Years Used Date Smoking Tobacco: Every Day Cigarettes 1.5 43.2 Started: 1981 Smokeless Tobacco: Never Alcohol Use Standard Drinks/Week Comments Yes 0 (1 standard drink = 0.6 oz pur e alcohol) occasionally Education Answer Date Recorded What is the highest level of school you have completed or the highest degree you have received? Some college, no degree 04/04/2022 Sexually Active Control Partners Comments Yes Female Sex and Gender Information Value Date Recorded Sex Assigned at Not on file Legal Sex Male 11:26 PM CDT Gender Identity Not on file Sexual Orientation Not on file COVID-19 Exposure Response Date Recorded In the last 10 days, have yo u been in contact with someone who was confirmed or suspected to have Coronavirus/COVID-19? No / Unsure 07/30/2022 8:12 AM CDT documented as of this encounter Miscellaneous Notes * Telephone Encounter - Ami Jensen RN - 07/31/2022 10:30 AM CDT The original prescriptions were reordered on 07/31/2022 by Frankie Millan MD. * Telephone Encounter - Ami Jensen RN - 07/31/2022 9:45 AM CDT duplicates documented in this encounter Plan of Treatment Upcoming Encounters Date Type Department Care Team (Late st Contact Info) Description 06/20/2024 10:30 AM CDT Office Visit [facility] Cardiology [facility] #2 [place] [address] Tasneem Justice APRN, FINANCIAL INSTITUTION BRANCH MANAGER #2 [place] [address] 08/30/2024 10:30 AM CDT Office Visit [facility] Family Medicine [facility] #2 [place] [address] Frankie Millan MD #[address] [address] 09/23/2024 11:30 AM CDT Office Visit [facility] Cardiology [facility] #2 [place] [address] Clarisa Wong MD [address] [facility] [address] [place] [address] documented as of this encounter Visit Diagnoses Not on filedocumented in this encounter Care Teams Rn Critical Care Relationship Specialty Start Date End Date Frankie Millan MD #[address] [address] PCP - General Family Medicine 06/03/22 Glenn Sharif MD #[address] [address] Consulting Physician Colon and Rectal Surgery 06/12/22 Bro Sebastian MD #[address] [address] Consulting Physician Cardiovascular Disease - Cardiology 06/24/22 01/26/24 Rolando Johnson MD #2 [place] [id number] Consulting Physician Pulmonary Disease 12/15/22 Emelia Ojeda APRN, FINANCIAL INSTITUTION BRANCH MANAGER #2 [facility] [address] [address] Nurse Practitioner Advanced Practice Nurse 07/24/23 Ernestina Ovalle LPN [place] Health Supply Manager 09/25/23 09/25/23 Brandee Haque LSW [place] Aircraft De Icer Installer Car Clerk Pullman 09/25/23 10/09/23 Clarisa Wong MD [address] [address] Consulting Physician Cardiology 03/25/24 documented as of this encounter
--- OUTSIDE RECORDS SUMMARY | 2024-04-28 13:38 | XMS_ITS | Encounter Summary ---
Author Organization [facility] Address [address] [place] [address] Phone Care Team Providers Care Ceramic Tile Installation Helper Name Role Phone Frankie Millan MD Primary Care Provider [phone] Glenn Sharif MD Unavailable Bro Sebastian MD Unavailable Rolando Zambrano MD Unavailable Emelia Ojeda APRN, OPERATOR MAINTAINER Unavailable [phone] Ernestina Ovalle COATER Unavailable Unavailable Brandee Haque GRAIN MILL WORKER Unavailable Unavailab Clarisa Lawrence MD Unavailable Reason for Visit * Reason Comments Medication Refill Encounter Details Date Type Department Care Team (Late st Contact Info) Description 07/19/2023 Refill [facility] Med Surg [address] [place] [phone] Frankie Millan MD #[address] [address] Medication Refill Social History Tobacco Use Types [...] on file Sexual Orientation Not on file documented as of this encounter Miscellaneous Notes * Telephone Encounter - Lizzie Calvillo RN - 07/19/2023 3:42 PM CDT duplicate documented in this encounter Plan of Treatment Upcoming Encounters Date Type Department Care Team (Late st Contact Info) Description 06/20/2024 10:30 AM CDT [facility] [place] [address] [place] [address] Tasneem Justice APRN, OPERATOR MAINTAINER #2 [facility] [phone] 08/30/2024 10:30 AM CDT [facility] [place] #2 [place] [address] Frankie Millan MD #[address] [facility] [address] [place] [address] 09/23/2024 11:30 AM CDT [facility] [place] [address]2 [place] [phone] Clarisa Wong MD 2 [facility] AN[place] [facility]. [address] [place], [place] [id number] documented as of this encounter Visit Diagnoses Not on filedocumented in this encounter Care Teams Ceramic Tile Installation Helper Relationship Specialty Start Date End Date Frankie Millan MD [address] [facility] [address] [place] [address] PCP - General Family Medicine 06/03/22 Glenn Sharif MD #[address] [address] Consulting Physician Colon and Rectal Surgery 06/12/22 Bro Sebastian MD [address] [address] Consulting Physician Cardiovascular Disease - Cardiology 06/24/22 01/26/24 Rolando Johnson MD #2 [place] [address] Consulting Physician Pulmonary Disease 12/15/22 Emelia Ojeda APRN, OPERATOR MAINTAINER #2 [facility] [address] [place] [address] Nurse Practitioner Advanced Practice Nurse 07/24/23 Ernestina Ovalle LPN [place] Health Distance Education Coordinator 09/25/23 09/25/23 Brandee Haque LSW [place] Reservoir Engineer Equipment Cleaner 09/25/23 10/09/23 Clarisa Wong MD 2 [facility] [address] [place] [address] Consulting Physician Cardiology 03/25/24 documented as of this encounter
--- OUTSIDE RECORDS SUMMARY | 2024-04-28 13:38 | XMS_ITS | Encounter Summary ---
Author Organization [facility] Address [address] [place] [address] Phone Care Team Providers Care Wedding Designer Name Role Phone Frankie Millan MD Primary Care Provider [phone] Glenn Sharif MD Unavailable Bro Sebastian MD Unavailable Rolando Zambrano MD Unavailable Emelia Ojeda APRN, SURFACE SUPPLY BREATHING APPARATUS Unavailable [phone] Ernestina Ovalle ATOMIC PHYSICS TEACHER Unavailable Unavailable Brandee Haque CRAB FISHER Unavailable Unavailab Clarisa Lawrence MD Unavailable Reason for Visit * Reason Comments Medication Refill Encounter Details Date Type Department Care Team (Late st Contact Info) Description 07/19/2023 Refill [facility] Med Surg [address] [place] [phone] Frankie Millan MD #[address] [address] Medication Refill Social History Tobacco Use Types [...] Calvillo RN - 07/19/2023 3:42 PM CDT No protocol info Per nursing clinical judgement, provider to review and approve the medication(s) order(s) if appropriate. Requested Prescriptions Pending Prescriptions Disp Refills pantoprazole (PROTONIX) 40 MG Tablet Delayed Response [Pharmacy Med Name: PANTOPRAZOLE 40MG TABLETS] 90 Tablet 1 Sig: TAKE 1 TABLET BY MOUTH DAILY There is no refill protocol information for this order documented in this encounter Plan of Treatment Upcoming Encounters Date Type Department Care Team (Late st Contact Info) Description 06/20/2024 10:30 AM CDT Office Visit [facility] Cardiology [facility] #2 [place] [address] Tasneem Justice APRN, SURFACE SUPPLY BREATHING APPARATUS #2 [place] [address] 08/30/2024 10:30 AM CDT Office Visit [facility] Family Medicine [facility] #2 [place] [address] Frankie Millan MD #[address] [address] 09/23/2024 11:30 AM CDT Office Visit [facility] Cardiology [facility] #2 [place] [address] Clarisa Wong MD 2 [facility] [address] [place] [address] documented as of this encounter Visit Diagnoses Not on filedocumented in this encounter Care Teams Wedding Designer Relationship Specialty Start Date End Date Frankie Millan MD #[address] [facility] [address] [place] [address] PCP - General Family Medicine 06/03/22 Glenn Sharif MD #2 [place] [facility] [address] [place] [address] Consulting Physician Colon and Rectal Surgery 06/12/22 Bro Sebastian MD #[address] [address] Consulting Physician Cardiovascular Disease - Cardiology 06/24/22 01/26/24 Rolando Johnson MD #[address] [place] [address] Consulting Physician Pulmonary Disease 12/15/22 Emelia Ojeda APRN, SURFACE SUPPLY BREATHING APPARATUS #2 [facility] [address] [place] [address] Nurse Practitioner Advanced Practice Nurse 07/24/23 Ernestina Ovalle LPN [place] Health Market Analysis Director 09/25/23 09/25/23 Brandee Haque LSW [place] Residential Solar Consultant Operations Director 09/25/23 10/09/[address] [address] [place] [address] Consulting Physician Cardiology 03/25/24 documented as of this encounter
--- OUTSIDE RECORDS SUMMARY | 2024-04-28 13:38 | XMS_ITS | Encounter Summary ---
Author Organization [facility] Address [address] [place] [address] Phone Care Team Providers Care Animal Caretaker Name Role Phone Frankie Millan MD Primary Care Provider [phone] Glenn Sharif MD Unavailable Bro Sebastian MD Unavailable Rolando Zambrano MD Unavailable Emelia Ojeda APRN, SLUBBER TENDER Unavailable [phone] Ernestina Ovalle PROCEDURE ANALYST Unavailable Unavailable Brandee Haque LAND EXAMINER Unavailable Unavailab Clarisa Lawrence MD Unavailable Reason for Visit * Reason Comments Medication Refill Encounter Details Date Type Department Care Team (Late st Contact Info) Description 05/06/2023 Refill [facility] Medical Group - Family Medicine [facility] #2 [place] [address] Frankie Millan MD #[address] [address] Medication Refill Social History Tobacco Use Types [...] Telephone Encounter - Ami Jensen RN - 05/06/2023 12:16 PM CDT Medication[facility]) [facility] Standing Order for Pediatricand Adult Patients. Requested Prescriptions Pending Prescriptions Disp Refills glimepiride (AMARYL) 2 MG Tablet [Pharmacy Med Name: GLIMEPIRIDE 2MG TABLETS] 90 Tablet 1 Sig: TAKE 1 TABLET BY MOUTH EVERY MORNING Sulfonylureas Protocol Passed - 05/06/2023 3:09 AM Passed - Visit with relevant provider in past 6 months or upcoming 90 days Recent Visits Date Type Provider Dept 12/04/22 Office Visit Frankie Millan MD [facility] [place] Showing recent visits within past 182 days and meeting all other requirements Future Appointments No visits were found meeting these conditions. Showing future appointments within next 90 days and meeting all other requirements Passed - HgA1C on record in past 6 months HGB-A1C Date Value Ref Range Status 06/03/2022 7.9 (A) 4 - 6 % Final HGB-A1C Date Value Ref Range Status 12/04/2022 7.3 (H) 4.0 - 6.0 % Final Passed - GFR on record in past 6 months GFR, EST. NONAFRICAN Date Value Ref Range Status 12/08/2022 >60 >=60 Final documented in this encounter Plan of Treatment Upcoming Encounters Date Type Department Care Team (Late st Contact Info) Description 06/20/2024 10:30 AM CDT [facility] - [facility]iology - [place] #2 [place] [phone] Tasneem Justice APRN, SLUBBER TENDER #[address] [place] [address] 08/30/2024 10:30 AM CDT Office Visit [facility] Medical Group - Family Medicine [facility] #2 [facility] [place] [address] Frankie Millan MD #[address] [facility] [address] [place] [address] 09/23/2024 11:30 AM CDT [facility] [place] #2 [place] [address] Clarisa Wong MD [address] [address] documented as of this encounter Visit Diagnoses Not on filedocumented in this encounter Care Teams Animal Caretaker Relationship Specialty Start Date End Date Frankie Millan MD #[address] [address] PCP - General Family Medicine 06/03/22 Glenn Sharif MD #[address] [address] Consulting Physician Colon and Rectal Surgery 06/12/22 Bro Sebsatian MD #[address] [address] Consulting Physician Cardiovascular Disease - Cardiology 06/24/22 01/26/24 Rolando Johnson MD #2 [place] [address] Consulting Physician Pulmonary Disease 12/15/22 Emelia Ojeda APRN, SLUBBER TENDER #2 [facility] [address] [address] Nurse Practitioner Advanced Practice Nurse 07/24/23 Ernestina Ovalle LPN [place] Health Precision Machine Operator 09/25/23 09/25/23 Brandee Haque LSW [place] Resourcing Consultant Transporter Driver 09/25/23 10/09/23 Clarisa Wong MD [address] [address] Consulting Physician Cardiology 03/25/24 documented as of this encounter
--- OUTSIDE RECORDS SUMMARY | 2024-04-28 13:38 | XMS_ITS | Encounter Summary ---
Author Organization [facility] Address [address] [place] [address] Phone Care Team Providers Care Glove Machine Operator Name Role Phone Frankie Millan MD Primary Care Provider [phone] Glenn Sharif MD Unavailable Bro Sebastian MD Unavailable Rolando Zambrano MD Unavailable Emelia Ojeda APRN, MANAGER PARTY Unavailable [phone] Ernestina Ovalle RESIDENTIAL SALES EXECUTIVE Unavailable Unavailable Brandee Haque DIETARY WORKER Unavailable Unavailab Clarisa Lawrence MD Unavailable Reason for Visit * Reason Comments Medication Refill Encounter Details Date Type Department Care Team (Late st Contact Info) Description 06/02/2023 Refill [facility] Med Surg [address] [place] [phone] Frankie Millan MD #[address] [address] Medication Refill Social History Tobacco Use Types [...] Telephone Encounter - Ami Jensen RN - 06/02/2023 11:58 AM CDT Per nursing clinical judgement, provider to review and approve the medication(s) order(s) if appropriate. Requested Prescriptions Pending Prescriptions Disp Refills furosemide (LASIX) 40 MG Tablet [Pharmacy Med Name: FUROSEMIDE 40MG TABLETS] 90 Tablet 1 Sig: Take 1 Tablet by mouth daily. There is no refill protocol information for this order documented in this encounter Plan of Treatment Upcoming Encounters Date Type Department Care Team (Late st Contact Info) Description 06/20/2024 10:30 AM CDT Office Visit [facility] Cardiology [facility] #2 [place] [address] Tasneem Justice APRN, MANAGER PARTY #2 [place] [address] 08/30/2024 10:30 AM CDT Office Visit [facility] Family Medicine [facility] #2 [place] [address] Frankie Millan MD #[address] [address] 09/23/2024 11:30 AM CDT Office Visit [facility] Cardiology [facility] #2 [place] [address] Clarisa Wong MD 2 [facility] [address] [place] [address] documented as of this encounter Visit Diagnoses Not on filedocumented in this encounter Care Teams Glove Machine Operator Relationship Specialty Start Date End Date Frankie Millan MD #[address] [facility] [address] [place] [address] PCP - General Family Medicine 06/03/22 Glenn Sharif MD #[address] [facility] [address] [place] [address] Consulting Physician Colon and Rectal Surgery 06/12/22 Bro Sebastian MD #[address] [address] Consulting Physician Cardiovascular Disease - Cardiology 06/24/22 01/26/24 Rolando Johnson MD #2 [place] [address] Consulting Physician Pulmonary Disease 12/15/22 Emelia Ojeda APRN, MANAGER PARTY #2 [facility] [address] [place] [address] Nurse Practitioner Advanced Practice Nurse 07/24/23 Ernestina Ovalle LPN [place] Health Papeterie Table Assembler 09/25/23 09/25/23 Brandee Haque LSW [place] Affirmative Action Specialist Auto Service Instructor 09/25/23 10/09/[address] [facility] [address] [place] [address] Consulting Physician Cardiology 03/25/24 documented as of this encounter
--- OUTSIDE RECORDS SUMMARY | 2024-04-28 13:41 | XMS_ITS | Continuity of Care Document ---
Author Name [facility] Organization [facility] Care Team Providers Care Cake Puncher Name Role Phone [facility] Unavailable Unavailable Encounters Combined list of: 1) Encounters from [facility] facilities going backup to the last 18 months, not all [facility] inpatient encounters are included; 2) Encounters from the Department of [facility] facilities going backup to 280 months. Location Location Details Encounter Type Encounter Number Reason For Visit Attending Provider ADM Date DC Date Status Disposition Source [facility] Outpatient Encounter [id number] 05/27 [facility]
== END 2024-04-28 13:07 | disposition home or self-care (01) ==
PROVIDERS: Emergency Provider Nurse Practitioner Family
DX: M79.642 Pain in left hand (principal); I25.10 Atherosclerotic heart disease of native coronary artery without angina pectoris; E11.9 Type 2 diabetes mellitus without complications; I25.2 Old myocardial infarction; F17.210 Nicotine dependence, cigarettes, uncomplicated; Z79.84 Long term (current) use of oral hypoglycemic drugs; Z79.01 Long term (current) use of anticoagulants
CPT/HCPCS: 99213; G0463